=== PATIENT | male | born 1965 | race Caucasian/White ===

== ENCOUNTER → 2018-01-19 | Outpatient (CLI) | payer OTHER ==
[~2018-01-19] MED LIST: CYCL10 PO; Norco 10-325 T1 EACH PO; TRAM50 PO; Zofran Odt4 MG SL
[2018-01-22 07:13] LABS: COTININE Negative ng/mL (Cutoff=300)
== END ==
LOC: LAB SHORT 15:45 → LAB 15:45
PROVIDERS: Nurse Practitioner Family
DX: F17.210 Nicotine dependence, cigarettes, uncomplicated (principal)

== ENCOUNTER 2018-03-26 11:46 | Day surgery (SDC) | payer OTHER ==
[~2018-03-26] VITALS: Ht 177.8 cm; Wt 73.6 kg
== END 2018-03-26 14:54 | disposition home or self-care (01) ==
LOC: ORSCSDS 11:46
PROVIDERS: Surgery
PROC: 0DBL8ZX Excision of Transverse Colon, Via Natural or Artificial Opening Endoscopic, Diagnostic (ICD-10-PCS; principal; 2018-03-26 13:00)
PROC: 0DBK8ZX Excision of Ascending Colon, Via Natural or Artificial Opening Endoscopic, Diagnostic (ICD-10-PCS; principal; 2018-03-26 13:00)
PROC: 0DBM8ZX Excision of Descending Colon, Via Natural or Artificial Opening Endoscopic, Diagnostic (ICD-10-PCS; principal; 2018-03-26 13:00)
DX: Z12.11 Encounter for screening for malignant neoplasm of colon (principal); D12.3 Benign neoplasm of transverse colon; D12.4 Benign neoplasm of descending colon; K64.8 Other hemorrhoids; K57.30 Diverticulosis of large intestine without perforation or abscess without bleeding; Z87.891 Personal history of nicotine dependence; R73.03 Prediabetes; E78.5 Hyperlipidemia, unspecified
CPT/HCPCS: 88305; J7120

== ENCOUNTER 2018-05-15 05:56 | Day surgery (SDC) | payer OTHER ==
[~2018-05-15] VITALS: Ht 177.8 cm; Wt 74.4 kg
== END 2018-05-15 16:46 | disposition home or self-care (01) ==
LOC: ORSCMMR 05:56 → ORD 07:30 → ORSCMMR 07:30
PROVIDERS: Surgery
PROC: 8E0W0CZ Robotic Assisted Procedure of Trunk Region, Open Approach (ICD-10-PCS; principal; 2018-05-15 07:30)
PROC: 0YUA0JZ Supplement Bilateral Inguinal Region with Synthetic Substitute, Open Approach (ICD-10-PCS; principal; 2018-05-15 07:30)
DX: K40.30 Unilateral inguinal hernia, with obstruction, without gangrene, not specified as recurrent (principal); K40.90 Unilateral inguinal hernia, without obstruction or gangrene, not specified as recurrent; R73.03 Prediabetes; F17.210 Nicotine dependence, cigarettes, uncomplicated
CPT/HCPCS: 49507; 49505; S2900; C1781; J0690; J3010; J7120

== ENCOUNTER 2018-09-01 13:27 | Day surgery (SDC) | payer OTHER ==
[~2018-09-01] VITALS: Ht 177.8 cm; Wt 74.6 kg
== END 2018-09-01 15:52 | disposition home or self-care (01) ==
LOC: ORSCSDS 13:27
PROVIDERS: Surgery
PROC: 0DJD8ZZ Inspection of Lower Intestinal Tract, Via Natural or Artificial Opening Endoscopic (ICD-10-PCS; principal; 2018-09-01 15:00)
DX: Z12.11 Encounter for screening for malignant neoplasm of colon (principal); Z86.010 Personal history of colon polyps; K64.8 Other hemorrhoids; E78.5 Hyperlipidemia, unspecified; F17.210 Nicotine dependence, cigarettes, uncomplicated
CPT/HCPCS: J7120

== ENCOUNTER 2021-01-22 11:52 | Emergency (ER) | payer OTHER ==
[~2021-01-22] VITALS: Ht 177.8 cm; Wt 77.1 kg
== END 2021-01-22 13:28 | disposition left against medical advice (07) ==
LOC: ER 11:52
DX: H57.89 Other specified disorders of eye and adnexa (principal); N50.812 Left testicular pain
CPT/HCPCS: 99283

== ENCOUNTER 2021-06-29 19:17 | Emergency (ER) | payer OTHER ==
[~2021-06-29] VITALS: Ht 177.8 cm; Wt 79.4 kg
== END 2021-06-30 00:54 | disposition home or self-care (01) ==
LOC: ER 19:17
DX: N50.812 Left testicular pain (principal); G89.29 Other chronic pain; Z88.1 Allergy status to other antibiotic agents
CPT/HCPCS: 36415; 76870; 96374; 99284-25; A9270; J1885

== ENCOUNTER 2024-11-16 04:01 | Observation (INO) | payer OTHER ==
[~2024-11-16] VITALS: Ht 177.8 cm; Wt 80.6 kg
[~2024-11-16 04:01] MED LIST changes: +CEPH500 PO; +Mupirocin22 GM TOP
[2024-11-16 04:34] LABS: BASOPHILS ABSOLUTE AUTO 0.04 K/mm3 (0.00-0.23); BASOPHILS PERCENT AUTO 1 % (0-2); EOSINOPHILS ABSOLUTE AUTO 0.23 K/mm3 (0.00-0.68); EOSINOPHILS PERCENT AUTO 4 % (0-6); Hematocrit 45.7 % (37.0-53.0); Hemoglobin 15.6 g/dL (13.5-17.5); IMMATURE GRAN ABSOLUTE AUTO 0.01 K/mm3 (0.00-0.10); IMMATURE GRAN PERCENT AUTO 0 % (0-1); LYMPHOCYTES ABSOLUTE AUTO 2.22 K/mm3 (0.84-5.20); LYMPHOCYTES PERCENT AUTO 38 % (21-46); MONOCYTES ABSOLUTE AUTO 0.72 K/mm3 (0.16-1.47); MONOCYTES PERCENT AUTO 12 % (4-13); Mean Corpuscular HGB 31.6 pg (26.0-34.0); Mean Corpuscular HGB Conc 34.1 g/dL (31.5-36.5); Mean Corpuscular Volume 93 fL (80-100); NEUTROPHILS ABSOLUTE AUTO 2.63 K/mm3 (1.96-9.15); NEUTROPHILS PERCENT AUTO 45 % (41-73); Platelet Count 232 K/mm3 (150-400); RDW Coefficient Variation 13.3 % (11.7-14.2); RDW Standard Deviation 45.7 fL (35.1-46.3); Red Blood Cell Count 4.93 M/mm3 (4.30-5.90); White Blood Cell Count 5.85 K/mm3 (4.00-11.30)
[2024-11-16 04:50] LABS: International Normalized Ratio 0.89; Prothrombin Time Results 9.6 Sec (9.7-11.5)
[2024-11-16 05:07] LABS: Albumin, Blood 3.2 g/dL (3.4-5.0); Albumin/Globulin Ratio 0.9 (0.8-1.8); Bilirubin, Total 0.3 mg/dL (0.1-1.0); Bun/Creatinine Ratio 21.9 (12.0-20.0); Calcium, Blood 8.6 mg/dL (8.5-10.1); Creatinine, Blood 0.96 mg/dL (0.60-1.20); Globulin, Blood 3.7 g/dL (2.2-4.0); Potassium, Blood 3.5 mmol/L (3.5-5.5); Total Protein, Blood 6.9 g/dL (6.4-8.2)
[2024-11-16] MEDS ORDERED: Aspirin 325 MG Tab PO ONE (06:55)
[2024-11-16] MEDS ORDERED: HydrALAZINE HCl 20 MG / ML 1ML Vial IV PRN (08:55)
[2024-11-16] MEDS ORDERED: Enoxaparin 40 MG/0.4 ML SYR SC SCH (09:00)
[2024-11-16] MEDS ORDERED: Atorvastatin 40 MG Tab PO SCH (09:00)
[2024-11-16 09:24] LABS: LDL/HDL RATIO 2.6
[2024-11-16 09:25] LABS: CHOL/HDL RATIO 3.9; Cholesterol 188 mg/dL (50-200); HDL Cholesterol 48 mg/dL (>39); Low Density Lipoprotein Chol 123 mg/dL (0-110); Triglycerides 84 mg/dL (30-160); Very Low Density Lipoprot Chol 16 mg/dL (6-32)
[2024-11-16 14:05] VITALS: BP 180/95
--- NOTE | 2024-11-16 14:29 | NUR ---
ADMIT NOTE PT ARRIVED TO UNIT FROM ER AT APPROX 1338. HE IS A/OX4 ABLE TO MAKE HIS NEEDS KNOWN. HE ARRIVES WITH ELEVATED BP, MEDICATED WITH HYDRALAZINE PER EMAR. HE IS IN NSR WITH NO REPORTS OF CHEST PAIN/PRESSURE. PT ENDORSES DIZZINESS WHEN SITTING AT SIDE OF BED. HE IS ON RA WITH NO SOB. HE HAS BEEN EDUCATED ON NEED TO CALL FOR ASSISTANCE BEFORE GETTING OUT OF BED. FAMILY AT BEDSIDE. CARE CONTINUES
[2024-11-16 19:42] VITALS: BP 144/74
[2024-11-16 22:04] LABS: Source, Urine Clean Catch
[2024-11-16 22:10] LABS: Bilirubin, Urine Neg (Neg); Blood, Urine 1+ (Neg); Glucose Qualitative, Urine Neg (Neg); Ketones, Urine Neg (Neg); Leukocyte Esterase, Urine Neg (Neg); Nitrite, Urine Neg (Neg); Protein, Urine 1+ (Neg); Specific Gravity, Urine 1.015 (1.003-1.022); Urobilinogen, Urine NORM (Normal); pH, Urine 6.5 (5.0-8.0)
[2024-11-16 22:11] LABS: Appearance, Urine Clear (Clear); Color, Urine Yellow (P-Yellow)
[2024-11-16 22:19] LABS: Bacteria Not Seen /hpf; Red Blood Cells, Urine 0-2 /hpf (0-2); Squamous Epithelial Cells Not Seen /hpf (Few); White Blood Cells, Urine Not Seen /hpf (0-5)
[2024-11-16 22:20] LABS: Amorphous Light (0-Heavy)
[2024-11-17] VITALS (8 sets, daily range): BP systolic 133–168; BP diastolic 75–103
--- NOTE | 2024-11-17 04:37 | NUR ---
PT A&OX4, VS WNL, WILL CHECH ORTHOSTATIC BP'S THIS AM. ALL ADL'S INDEPENDENT. STILL WITH DIZZINESS WHEN UPRIGHT, NONE WHEN SUPINE. TELE NSR IN 80'S. PT DENIED PAIN, USES CALL SYSTEM APPROPRIATELY, USES SCD'S WITHOUT COMPLAINT. UA SENT NEGATIVE FOR BACTERIA. MRI COMPLETE, NEGATIVE FOR CVA. UNSURE WHAT PLAN IS AT THIS TIME, WILL MONITOR SAFETY.
[2024-11-17 06:15] LABS: BASOPHILS ABSOLUTE AUTO 0.07 K/mm3 (0.00-0.23); BASOPHILS PERCENT AUTO 1 % (0-2); EOSINOPHILS ABSOLUTE AUTO 0.28 K/mm3 (0.00-0.68); EOSINOPHILS PERCENT AUTO 4 % (0-6); Hematocrit 48.1 % (37.0-53.0); Hemoglobin 16.3 g/dL (13.5-17.5); IMMATURE GRAN ABSOLUTE AUTO 0.01 K/mm3 (0.00-0.10); IMMATURE GRAN PERCENT AUTO 0 % (0-1); LYMPHOCYTES ABSOLUTE AUTO 2.32 K/mm3 (0.84-5.20); LYMPHOCYTES PERCENT AUTO 36 % (21-46); MONOCYTES PERCENT AUTO 8 % (4-13); Mean Corpuscular HGB 31.2 pg (26.0-34.0); Mean Corpuscular HGB Conc 33.9 g/dL (31.5-36.5); Mean Corpuscular Volume 92 fL (80-100); Mean Platelet Volume 9.4 fL (9.1-12.4); NEUTROPHILS ABSOLUTE AUTO 3.28 K/mm3 (1.96-9.15); NEUTROPHILS PERCENT AUTO 51 % (41-73); Platelet Count 240 K/mm3 (150-400); RDW Coefficient Variation 13.5 % (11.7-14.2); RDW Standard Deviation 46.1 fL (35.1-46.3); Red Blood Cell Count 5.23 M/mm3 (4.30-5.90); White Blood Cell Count 6.46 K/mm3 (4.00-11.30)
--- NOTE | 2024-11-17 06:33 | NUR ---
PT WAS NOT SYMPTOMATIC WITH ORTHOSTATIC B/P'S THIS AM. NO DISTRESS AT ALL
[2024-11-17 06:44] LABS: Bun/Creatinine Ratio 18.5 (12.0-20.0); Calcium, Blood 8.7 mg/dL (8.5-10.1); Creatinine, Blood 0.92 mg/dL (0.60-1.20); Potassium, Blood 3.8 mmol/L (3.5-5.5)
[2024-11-17] MEDS ORDERED: Aspirin 81 MG Chew PO SCH (09:00)
[2024-11-17] MEDS ORDERED: HydroCHLOROthiazide 25 mg Tab PO SCH (09:00)
[2024-11-17] MEDS ORDERED: Clopidogrel Bisulfate 75 MG Tab PO SCH (09:00)
[2024-11-17] MEDS ORDERED: Ondansetron HCl 2 MG / ML 2ML Vial IV PRN (12:00)
[2024-11-17 14:54] LABS: U Amphetamine Screen DETECTED; U Barbituate Screen Not Detected; U Benzodiazapine Screen Not Detected; U Buprenorphine Screen Not Detected; U Cannabinoids Screen DETECTED; U Cocaine Screen Not Detected; U Methadone Screen Not Detected; U Methamphetamine Screen DETECTED; U Opiates Screen Not Detected; U Oxycodone Screen Not Detected; U Phencyclidine Screen Not Detected
--- NOTE | 2024-11-17 17:51 | NUR ---
SHIFT SUMMARY MR RICHEY HAS BEEN SWEATY MOST OF THE SHIFT. LEFT SIDED NUMBNESS AND LIGHTHEADEDNESS WHEN HE STANDS OR SITS UPRIGHT. LYING WITH HIS HEAD ABOUT 20 DEGREES CURRENTLY HE HAS NO DIZZYNESS OR NUMBNESS. MRI DONE. EPISODE OF NAUSEA EARLIER THIS SHIFT TREATED WITH ZOFRAN. TELEMETRY SR 1 AVB., NO CALLS FROM [employer]ENDING ASSISTANT. PT C/O RINGING IN HIS EARS ALL DAY. BED LOW, CALL LIGHT IN REACH.
[2024-11-17] MEDS ORDERED: Lactobacil 2-S.Thermo-Bifido 1 1 Cap PO SCH (21:00)
[2024-11-17] MEDS ORDERED: Amoxicillin/Clavulanate K 875 MG Tab PO SCH (21:00)
[2024-11-18 00:55] VITALS: BP 154/98
[2024-11-18] MEDS ORDERED: Acetaminophen 325 MG TABLET PO PRN (04:15)
[2024-11-18 04:57] VITALS: BP 147/86
--- NOTE | 2024-11-18 05:10 | NUR ---
SHIFT SUMMARY PT IS ALERT AND ORIENTED TIMES 4. PT ADMITTED FOR POSSIBLE CVA. PT IS ON ROOM AIR. PT HAS CONTINUES TO HAVE LEFT SIDE WEAKNESS. PT S VITALS HAVE BEEN SLIGHTLY ELIVATED. LAST BP WAS 147/86 P83. PT WAS GIVEN 10MG HYDRALAZINE EARLIER IN EVENING WHEN BP WAS 168/96. PT COMPLAINED OF HEADACHE THIS AM AND ORDER OBTAINED FOR TYLENOL 650MG Q4 PRN GIVEN. COOPERATIVE WITH CARE. PT IS ON TELE. MRI NEG FOR STROKE. BED IN LOW POSITION, CALL LIGHT WITHIN REACH, RAILS TIMES 2.
[2024-11-18 07:39] VITALS: BP 157/97
[2024-11-18 07:40] VITALS: BP 142/96
[2024-11-18 07:41] VITALS: BP 121/89
[2024-11-18] MEDS ORDERED: Atorvastatin 40 MG Tab PO SCH (09:00)
[2024-11-18] MEDS ORDERED: AMOCLA875 PO (13:27)
[2024-11-18] MEDS ORDERED: ATOR40TA PO (13:29)
[2024-11-18] MEDS ORDERED: HYDCHL25 PO (13:29)
[2024-11-18] MEDS ORDERED: PROBIOTIC1 EA14 PO (13:30)
--- NOTE | 2024-11-18 14:46 | NUR ---
DISCHARGE NOTE CLIENT SEEN BY PT THIS MORNING AND ABULATED WITH A STEADY GATE AND NO COMPLAINTS OF DIZZINESS. CLIENT TOOK A SHOWER WITHOUT COMPLAINT OF DIZZNESS. CLIENT DC AT APPROX 1400 VIA WHEEL CHAIR. CLIENT PERSONAL POSSESSIONS WERE WITH HIM. ESCORTED VIA WHEELCHAIR. EDUCATION AND DC PACKET GIVEN. IV AND TELE REMOVED PRIOR TO DC. CLIENT VERBALIZED UNDERSTANDING OF DC INSTRUCTIONS AND VOICED NOT QUESTION WHEN ASKED.
== END 2024-11-18 14:01 | disposition home or self-care (01) ==
LOC: ER 04:01 → ERHOLD 04:02 → MEDS 13:36
PROVIDERS: Emergency Medicine; ADMIT Family Medicine
DX: I63.9 Cerebral infarction, unspecified (principal); I10 Essential (primary) hypertension; E78.5 Hyperlipidemia, unspecified; F19.90 Other psychoactive substance use, unspecified, uncomplicated; Z87.891 Personal history of nicotine dependence; Z88.8 Allergy status to other drugs, medicaments and biological substances
CPT/HCPCS: 36415; 70450; 70496; 70498; 70551; 72141; 72146; 80048; 80053; 80061; 81001; 85025; 85610; 85730; 93005; 93010; 93306; 96372; 96374; 96375; 96376; 97116; 97162; 97165; 97530; 99285-25; A9270; G0378; J0360; J1650; J2405; Q9967